=== PATIENT | male | born 1995 | race Caucasian/White ===

== ENCOUNTER 2019-10-28 02:57 | Emergency (ER) | payer MEDICAID ==
[~2019-10-28] VITALS: Ht 167.6 cm; Wt 71.2 kg
[2019-10-28 04:47] VITALS: BP 133/79
== END 2019-10-28 04:48 | disposition home or self-care (01) ==
LOC: ER 02:57
DX: F41.9 Anxiety disorder, unspecified (principal)
CPT/HCPCS: 99283